=== PATIENT | female | born 1945 | race Caucasian/White ===

== ENCOUNTER 2019-11-23 10:00 | Outpatient (CLI) | payer MEDICARE, OTHER, SELFPAY ==
--- NOTE | 2019-11-23 10:18 | CT_ITS ---
WS: [id number] CT ABDOMEN CONTRAST TECHNIQUE: Contrast enhanced CT of the abdomen with coronal and sagittal reformatted images. CLINICAL INFORMATION: METASTIC LIVER COMPARISON: None. DLP: 2017.[address] scans at [facility] use at least one of these dose optimization techniques: automat ed exposure control; mA and/or kV adjustment per patient size (includes targeted exams where dose is matched to clinical indication); or iterative reconstruction. FINDINGS: Hepatomegaly with innumerable low-attenuation lesions lesions throughout both hepatic lobes suspiciou s for cystic metastatic disease considering pancreatic lesion. Some of these appear to represent simp le cysts. This can be further evaluated with ultrasound. Mild intrahepatic biliary ductal dilatation. Cholecystectomy clips. Ill-defined low-attenuation mass involving the tail of the pancreas abutting the adjacent gastric wall. Low-attenuation heterogeneous ly enhancing mass measures 8.2 x 5.2 cm suspicious for mucinous or serous cystadenocarcinoma. Pancrea tic head appears normal. Pancreatic duct appears normal in the pancreatic head. Adrenal glands are normal. Small splenules in the spleen. Wedge-shaped area of heterogeneous enhancem ent in the spleen may be chronic infarct versus perfusion anomaly. This is not typical for metastatic disease. Bibasilar atelectasis. Postoperative changes laminectomy defects lumbar spine. Interbody fusion L1-L3 . Small bilateral renal cysts. CT/CT abdomen w con* [id number] IMPRESSION: 1. Hepatomegaly with innumerable low-attenuation lesions throughout both hepat ic lobes suspicious for cystic hepatic metastasis. Some of these appear to repr esent simple cysts. Recommend further evaluation with ultrasound. 2. Ill-defined heterogeneous low-attenuation mass involving the pancreatic radha l measuring 5.2 x 8.2 cm suspicious for serous or mucinous cystadenocarcinoma. Recommend ERCP. 3. Cholecystectomy clips. 4. Right renal cyst measuring 1.4 CM. Tiny left renal cyst.
[2019-11-23] MEDS: iodixanol 320 mg/mL 100mL Btl IV (10:40)
== END 2019-11-23 10:01 | disposition home or self-care (01) ==
LOC: RAD 10:06
PROVIDERS: Family Provider Family Medicine; PCP Family Medicine; Visit Provider Family Medicine
DX: C78.7 Secondary malignant neoplasm of liver and intrahepatic bile duct (principal); R16.0 Hepatomegaly, not elsewhere classified; K86.89 Other specified diseases of pancreas; Z90.49 Acquired absence of other specified parts of digestive tract; N28.1 Cyst of kidney, acquired
CPT/HCPCS: 74160